=== PATIENT | female | born 1960 | race Caucasian/White ===

== ENCOUNTER 2020-03-06 14:00 | Emergency (ER) | payer OTHER, BC, SELFPAY ==
[2020-03-06 14:02] VITALS: BP 166/93; PULSE 88; RESP 20; TEMP 36.5; O2SAT 98
[2020-03-06 15:18] VITALS: RESP 18
--- NOTE | 2020-03-06 15:20 | CTR_ITS ---
PROCEDURE INFORMATION: Exam: CT Head Without Contrast Exam date and time: 03/06/2020 4:06 PM Age: 59 years old Clinical indication: Pain; Headache not specified; Patient HX: C/O intermittent L sided BELL w dizziness x 1 month; Additional info: Head pain TECHNIQUE: Imaging protocol: Computed tomography of the head without contrast. Radiation optimization: All CT scans at this facility use at least one of these dose optimization techniques: automated exposure control; mA and/or kV adjustment per patient size (includes targeted exams where dose is matched to clinical indication); or iterative reconstruction. COMPARISON: No relevant prior studies available. RADIATION DOSE METRICS: Total DLP (mGy-cm): 850.86 FINDINGS: Brain: Mild volume loss and white matter disease are identified. There is no acute infarct or edema. No hemorrhage. Ventricles: Normal. No ventriculomegaly. Bones/joints: Unremarkable. No acute fracture. Sinuses: Visualized sinuses are unremarkable. No fluid levels. Mastoid air cells: Visualized mastoid air cells are well aerated. Soft tissues: Unremarkable. CT/CT head wo con* [id number] IMPRESSION: No acute intracranial abnormality. Radiation Dose CTDIVOL = (mGy): DLP = 850.86 (mGy-cm)
--- NOTE | 2020-03-06 16:10 | ED_ITS ---
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 She has a history of COPD. She presents today with facial pain and headache. This been going on and off for several weeks. She notes that initially she thought it was related to allergies and had turned into sinusitis. She saw her primary care doctor a couple of weeks ago and was put on 7 days of Augmentin. She said she felt slightly better while she was on that but when she stopped it the pain came back. She is having a little bit of drainage. She also has a tooth that she thinks could be causing the problem. It is one that she has had a root canal and previously. Her dentist cannot see her until the end of April. 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 She denies fever. She said her doctor gave her a new inhaler for her COPD and that seems to really be helping. She has not had a cough. She does not have any known exposure to COVID. She does feel like she has had some dizziness and generally does not feel well. MD elicited complaint: headache Onset (ago): week(s) Onset description: gradually Location: left, frontal and facial Severity: severe Quality & Timing: throbbing and intermittent Exacerbating factors: none Associated symptoms: Reports malaise; Deny chest pain, fever(s), nausea, rash or vomiting Review of Systems General: Reports: 10 or more systems reviewed and unremarkable except in HPI and below Const: Reports: fatigue and malaise; Denies: fever(s) or chills Eyes: Denies: change in vision ENMT: Denies: odynophagia Card: Denies: chest pain or swelling of feet/ankles Resp: Denies: dyspnea, productive cough or non-productive cough GI: Denies: abdominal pain, nausea or vomiting : Denies: flank pain or difficulty voiding Musc: Denies: neck pain or back pain Skin/Breast: Denies: rash Neuro: Reports: headache(s) and dizziness; Denies: numbness in extremities or weakness in extremities [place]/Lymph: Denies: easy bruising or easy bleeding Physical Exam Const: COMMON NORMALS: no acute distress, patient oriented x3, no limitations and alert GENERAL APPEARANCE: cooperative and comfortable HENMT: HEAD & SCALP: normal to inspection FACE & SINUS: normal facial exam TEETH & GINGIVA IMAGES: 1. [place] visible, mild erythema of the gum. No swelling Eye: GENERAL EYE: appearance normal, both eyes and all related structures Neck/C-Spine: COMMON NORMALS: supple, no meningeal signs and no JVD Chest: COMMONS NORMALS: normal inspection of the chest Resp: COMMON NORMALS: normal respiratory effort, No use of accessory muscles and clear to auscultation bilaterally AUSCULTATION: clear to auscultation bilaterally Cardio: COMMON NORMALS: no JVD, regular rate, regular rhythm and No murmurs present (Cardio) RATE: regular rate RHYTHM: regular rhythm GI: COMMON NORMALS: Normal to inspection, nondistended, normoactive bowel sounds present, Soft to palpation and non-tender INSPECTION: Yes normal to inspection AUSCULTATION: Yes normoactive bowel sounds PALPATION: Yes Soft to palpation Back/Pelvis: COMMON NORMALS: thoracic and lumbar spine normal to inspection Extremity: COMMON NORMALS: normal to inspection Neuro: COMMON NORMALS: patient oriented x3, moves all extremities, no focal motor deficits and no sensory deficits noted SENSORIUM/ORIENTATION: Yes alert MENINGEAL SIGNS: Yes no meningeal signs Psych: COMMON NORMALS: mental status grossly normal, cooperative and normal affect Skin: COMMON NORMALS: no rashes or lesions noted and turgor normal GENERAL SKIN EXAM: no rashes or lesions noted and turgor normal Course Vital Signs: Vital signs: Vital Signs Temperature 97.7 F 03/06/20 14:02 Pulse Rate 88 03/06/20 17:50 Respiratory Rate 18 03/06/20 17:50 Blood Pressure 155/80 03/06/20 17:50 Pulse Oximetry 98 03/06/20 17:50 MDM - Headache MDM Narrative: Medical decision making narrative: Headache, mainly on the left side of her head and face. Differential includes sinusitis with failed antibiotic therapy, dental abscess, trigeminal neuralgia, temporal arteritis. CT of her head was negative and labs for temporal arteritis were negative. Clinically does not seem like trigeminal neuralgia. Plan for antibiotics for possible dental infection. Follow-up with dentist. Return if worse. Lab Data: Labs: Lab Results 03/06/20 03/06/20 03/06/20 Range/Units 16:05 16:05 16:05 WBC 9.6 (4.0-10.0) 10^3/ uL RBC 4.84 (4.1-5.3) 10^6/u L Hgb 12.5 (11.5-15.3) g/dL Hct 39.7 (37.0-47.0) % MCV 82.0 (81-99) fL MCH 25.8 L (28.0-34.0) pg MCHC 31.5 (30.0-36.0) g/dL RDW 13.8 (12.1-15.1) % Plt Count 411 H (130-400) 10^3/c mm MPV 9.2 (7.4-10.4) fL Neut % (Auto) 70.5 % Lymph % (Auto) 18.9 % [place] % (Auto) 7.9 % Eos % (Auto) 1.4 % Baso % (Auto) 0.9 % Neut # (Auto) 6.76 (1.8-7.7) 10^3/u L Lymph # (Auto) 1.8 (0.8-4.8) 10^3/u L [place] # (Auto) 0.8 (0.2-0.9) 10^3/u L Eos # (Auto) 0.1 (0.0-0.8) 10^3/u L Baso # (Auto) 0.1 (0.0-0.1) 10^3/u L Nucleated RBC % (a uto) 0 % Nucleated RBCs # 0.0 /100WBC ESR 34 H (0-15) mm/hr Sodium 138 (136-145) mmol/L Potassium 4.4 (3.5-5.1) mmol/L Chloride 101 (98-107) mmol/L Carbon Dioxide 26 (22-29) mmol/L Anion Gap 15.4 (5-19) BUN 10 (8-23) mg/dL Creatinine 0.6 (0.5-0.9) mg/dL GFR Calculation 102.0 (90-130) mL/min Glucose 96 (65-115) mg/dL Calculated Osmolal ity 282 L (285-295) mOsm/k g Calcium 9.4 (8.5-10.5) mg/dL Total Bilirubin 0.2 (0.15-1.2) mg/dL AST 22 (0-32) U/L ALT 15 (0-33) U/L Alkaline Phosphata se 62 (35-105) IU/L C-Reactive Protein 6.6 H (0.0-4.9) mg/L Total Protein 8.2 (6.6-8.7) g/dL Albumin 5.0 (3.5-5.2) g/dL Globulin 3.2 (1.3-4.6) g/dL Discharge Plan Discharge Patient Disposition: Home Clinical Impression: Dental abscess Headache Qualifiers: Headache type: unspecified Headache chronicity pattern: acute headache Intractability: not intractable Qualified Code(s): R51 - Headache Condition: Stable Prescriptions: New clindamycin HCl 150 mg capsule 300 mg PO Q6H 10 Days Qty: 80 RF: 0 Discontinued amoxicillin-pot clavulanate 500-125 mg tablet See Rx Instructions .ROUTE .COMPLEX RF: 0 No Action ibuprofen 200 mg Tablet 400 mg PO PRN RF: 0 omeprazole 20 mg capsule,delayed release(DR/EC) 20 mg PO BID RF: 0 Tylenol PM Extra Strength 25-500 mg Tablet 1 tab PO BEDTIME RF: 0 Vitamin D3 50 mcg (2,000 unit) Capsule 2,000 unit PO TID RF: 0 Correctol 5 - 6 tab PO BEDTIME RF: 0 Metamucil See Rx Instructions .ROUTE .COMPLEX RF: 0 Tylenol 2 tab PO PRN RF: 0 Discharge Orders: Discharge Order (Routine); Ordered 03/06/20 Ordered By: Hazel Baez Referrals: Cristin Israel DO [Primary Care Provider] - Discharge Diet: Usual diet Discharge Activity: Resume usual activity Patient Instructions: Dental Abscess (ED), Acute Headache (ED) Activity Restrictions/Additional Instructions: Follow up with your dentist as soon as they can get you in. Also follow up with Dr. Israel if not improving. Return to the ED if worse in any way. 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
[2020-03-06 16:26] LABS: Basophils # 0.1 10^3/uL (0.0-0.1); Basophils % 0.9 %; Eosinophils # 0.1 10^3/uL (0.0-0.8); Eosinophils % 1.4 %; Hematocrit 39.7 % (37.0-47.0); Hemoglobin 12.5 g/dL (11.5-15.3); Lymphocytes # 1.8 10^3/uL (0.8-4.8); Lymphocytes % 18.9 %; Mean Corpuscular HGB Conc 31.5 g/dL (30.0-36.0); Mean Corpuscular Hemoglobin 25.8 pg (28.0-34.0); Mean Platelet Volume 9.2 fL (7.4-10.4); Monocytes # 0.8 10^3/uL (0.2-0.9); Monocytes % 7.9 %; Neutrophils # 6.76 10^3/uL (1.8-7.7); Neutrophils % 70.5 %; Nucleated Red Blood Cells % 0 %; Platelet Count 411 10^3/cmm (130-400); Red Blood Count 4.84 10^6/uL (4.1-5.3); Red Cell Distribution Width 13.8 % (12.1-15.1); White Blood Count 9.6 10^3/uL (4.0-10.0)
[2020-03-06 17:01] LABS: Alanine Aminotransferase 15 U/L (0-33); Alkaline Phosphatase 62 IU/L (35-105); Anion Gap 15.4 (5-19); Aspartate Amino Transferase 22 U/L (0-32); Blood Urea Nitrogen 10 mg/dL (8-23); C Reactive Protein 6.6 mg/L (0.0-4.9); Calcium 9.4 mg/dL (8.5-10.5); Carbon Dioxide 26 mmol/L (22-29); Chloride 101 mmol/L (98-107); Globulin 3.2 g/dL (1.3-4.6); Glucose 96 mg/dL (65-115); Osmolality Calculated 282 mOsm/kg (285-295); Potassium 4.4 mmol/L (3.5-5.1); Sodium 138 mmol/L (136-145); Total Bilirubin 0.2 mg/dL (0.15-1.2); Total Protein 8.2 g/dL (6.6-8.7)
[2020-03-06 17:18] VITALS: BP 155/80; PULSE 88; RESP 18; O2SAT 98
[2020-03-06 17:24] LABS: Erythrocyte Sedimentation Rate 34 mm/hr (0-15)
[2020-03-06 17:50] VITALS: BP 155/80; PULSE 88; RESP 18; O2SAT 98
== END 2020-03-06 17:50 | disposition home or self-care (01) ==
PROVIDERS: Emergency Provider Emergency Medicine; PCP Family Medicine
DX: R51 Headache (principal); K04.7 Periapical abscess without sinus
CPT/HCPCS: 12345; 36415; 70450; 80053; 85025; 85651; 86140; 99281; 99283

== ENCOUNTER 2021-01-27 11:17 | Outpatient (CLI) | payer OTHER, BC, SELFPAY ==
--- NOTE | 2021-01-27 11:21 | XR_ITS ---
WS: [id number] Chest 2 views, 01/27/2021 Clinical Data: dyspnea Comparison: PA and lateral chest, 11/25/2007. Findings: No nodules, masses or effusions are seen. The heart is normal. The pulmonary vascularity is not increased. No pneumonia or pneumothorax is seen. The aortic arch and descending aorta show calci fication and tortuosity. XR/XR chest 2V* [id number] Impression: Atherosclerosis.
[2021-01-27 11:55] LABS: Basophils # 0.1 10^3/uL (0.0-0.1); Basophils % 1.1 %; Eosinophils # 0.1 10^3/uL (0.0-0.8); Eosinophils % 1.9 %; Hematocrit 35.7 % (37.0-47.0); Lymphocytes # 1.4 10^3/uL (0.8-4.8); Lymphocytes % 20.9 %; Mean Corpuscular HGB Conc 30.8 g/dL (30.0-36.0); Mean Corpuscular Hemoglobin 24.2 pg (28.0-34.0); Mean Corpuscular Volume 78.6 fL (81-99); Mean Platelet Volume 8.6 fL (7.4-10.4); Monocytes # 0.4 10^3/uL (0.2-0.9); Monocytes % 6.8 %; Neutrophils # 4.44 10^3/uL (1.8-7.7); Neutrophils % 68.8 %; Nucleated Red Blood Cells % 0 %; Platelet Count 399 10^3/cmm (130-400); Red Blood Count 4.54 10^6/uL (4.1-5.3); Red Cell Distribution Width 14.4 % (12.1-15.1); White Blood Count 6.5 10^3/uL (4.0-10.0)
[2021-01-27 12:49] LABS: NT Pro B Type Natriuretic Pept 149 pg/mL (0-125)
[2021-01-28 17:23] LABS: Alternaria Alternata (M6) Ige <0.10 kU/L; Alternaria Class 0; Bermuda Class 0; Bermuda Grass (G2) Ige <0.10 kU/L; Cat Dander (E1) Ige <0.10 kU/L; Cat Dander Class 0; Common Ragweed (Short) (W1) Ig <0.10 kU/L; D. Farinae Class 0; Dermatophagoides Class 0; Dermatophagoides Farinae (D2) <0.10 kU/L; Dermatophagoides Pteronyssinus <0.10 kU/L; Dog Dander (E5) Ige <0.10 kU/L; Dog Dander Class 0; Elm (T8) Ige <0.10 kU/L; Elm Class 0; English Plantain (W9) Ige <0.10 kU/L; English Plantain Class 0; House Dust (Greer) (H1) Ige <0.10 kU/L; House Dust (Hollister- Stier) <0.10 kU/L; House Dust Class 0; Immunoglobulin E 5 kU/L (<OR=114); Immunoglobulin E 6 kU/L (<OR=114); Johnson Grass (G10) Ige <0.10 kU/L; Johnson Grass Cl 0; June Grass Class 0; June Grass(Kentucky Blue) (G8) <0.10 kU/L; Lamb'S Quarters (Goose Foot) <0.10 kU/L; Lamb'S Quarters Class 0; Maple (Box Elder) (T1) Ige <0.10 kU/L; Maple Class 0; Meadow Fescue (G4) Ige <0.10 kU/L; Meadow Fescue Class 0; Mucor Racemosus Class 0; Oak (T7) Ige <0.10 kU/L; Oak Class 0; Orchard Grass (Cocksfoot) (G3) <0.10 kU/L; Penicillium Class 0; Penicillium Notatum (M1) Ige <0.10 kU/L; Perennial Rye Grass (G5) Ige <0.10 kU/L; Perennial Rye Grass Class 0; Ragweeed Class 0; Rough Marsh Elder (W16) Ige <0.10 kU/L; Rough Marsh Elder Class 0; Sweet Vernal Class 0; Sweet Vernal Grass (G1) Ige <0.10 kU/L; Timothy Grass (G6) Ige <0.10 kU/L; Timothy Grass Class 0
[2021-02-01 19:01] LABS: Aspergillus Fumigatus, Igg Ab, 11.3 mg/L (<=102)
== END 2021-01-27 11:18 | disposition home or self-care (01) ==
PROVIDERS: PCP Family Medicine; Visit Provider Internal Medicine Pulmonary Disease
DX: R06.00 Dyspnea, unspecified (principal); J30.89 Other allergic rhinitis; I70.90 Unspecified atherosclerosis
CPT/HCPCS: 71046; 82785; 83880; 85025; 86003

== ENCOUNTER → 2021-02-03 08:20 | Outpatient (BNVA) | payer OTHER, BC, SELFPAY | PROVIDERS: PCP Family Medicine; Visit Provider Internal Medicine Pulmonary Disease | DX: J44.9 Chronic obstructive pulmonary disease, unspecified (principal); R06.02 Shortness of breath | CPT/HCPCS: 87635 ==

== ENCOUNTER 2021-02-04 13:06 | Outpatient (CLI) | payer OTHER, BC, SELFPAY ==
--- NOTE | 2021-02-04 13:30 | USCV_ITS ---
Bernice Porter Age: 60 Gender: F : 1960 Exam Date: 02/04/2021 13:25 Ordering Phys: Desean Baker MD Technologist: Vicki Zapata [place] [facility] [place]: Dyspnea BP: 130 / 80 HR: 89 Rhythm: Sinus Technical Quality: Very technically difficult study MEASUREMENTS (Male / Female) Normal Values 2D ECHO LV Diastolic Diameter PLAX 3.6 cm 4.2 - 5.9 / 3.9 - 5.3 cm LV Systolic Diameter PLAX 2.6 cm IVS Diastolic Thickness 1.5 cm 0.6 - 1.0 / 0.6 - 0.9 cm IVS Systolic Thickness 1.5 cm LVPW Diastolic Thickness 1.2 cm 0.6 - 1.0 / 0.6 - 0.9 cm LVPW Systolic Thickness 1.5 cm LVOT Diameter 2.0 cm LV Ejection Fraction 2D Teich 56.2 % LV Ejection Fraction MOD 2C 59.5 % LV Ejection Fraction 2C AL 62.0 % LA Diameter 3.0 cm LA Width 2.6 cm LA Height 3.3 cm RA Width 2.9 cm RA Height 3.8 cm Aorta at Sinotubular Diameter 2.2 cm DOPPLER AV Peak Velocity 137.0 cm/s LVOT Peak Velocity 144.0 cm/s AV Area Cont Eq vti 2.9 cm squared AV Area Cont Eq pk 3.4 cm squared MV Area PHT 6.7 cm squared Mitral E to A Ratio 1.3 MV E' Velocity 61.5 cm/s Mitral E to MV E' Ratio 13.3 Mitral E to LV E' Lateral Ratio 12.9 Mitral E to LV E' Septal Ratio 13.8 TR Peak Velocity 235.0 cm/s TR Peak Gradient 22.1 mmHg TV Peak E Velocity 51.0 cm/s Right Atrial Pressure 3.0 mmHg Pulmonary Artery Systolic Pressu 25.1 mmHg PV Peak Velocity 93.0 cm/s RV Acceleration Time 0.1 s RV Ejection Time 0.3 s RV AcT/ET 0.5 FINDINGS Left Ventricle Normal left ventricular cavity size. Normal left ventricular systolic function. No regional wall motion abnormalities. Left ventricular ejection fraction is estimated at 56 %. Grade II/IV diastolic dysfunction, moderately elevated filling pressures. Right Ventricle The right ventricle is normal in size and function. Right Atrium The right atrium is normal in size. Left Atrium The left atrium is normal in size. Mitral Valve Structurally normal mitral valve without significant stenosis or prolapse. There is no mitral regurgitation. Aortic Valve Structurally normal aortic valve without significant sclerosis or stenosis. There is no aortic regurgitation. Tricuspid Valve Structurally normal tricuspid valve without significant stenosis or regurgitation. Pulmonary artery systolic pressure is normal. Pulmonic Valve Structurally normal pulmonic valve without significant stenosis. There is no pulmonic regurgitation. Pericardium Normal pericardium without effusion. Aorta Normal ascending aorta dimension. CONCLUSIONS 1-Normal left ventricular cavity size. Normal left ventricular systolic function. No regional wall motion abnormalities. Left ventricular ejection fraction is estimated at 56 %. Grade II/IV diastolic dysfunction, moderately elevated filling pressures. 2-There is no pericardial effusion. 3-No significant valve abnormalities. 4-Pulmonary artery systolic pressure is within normal limits. 5-Right atrial pressure is around 5 mm of mercury. 6-There are no prior echocardiogram studies to compare. Kristy Mathews MD (Electronically Signed) Final Date: 04 February 2021 19:02 S
== END 2021-02-04 13:07 | disposition home or self-care (01) ==
LOC: RAD 13:07
PROVIDERS: PCP Family Medicine; Visit Provider Internal Medicine Pulmonary Disease
DX: R06.00 Dyspnea, unspecified (principal)
CPT/HCPCS: 93306

== ENCOUNTER 2021-02-09 09:56 | Outpatient (CLI) | payer OTHER, BC, SELFPAY ==
--- NOTE | 2021-02-09 08:56 | PFTS_ITS ---
Date of Study:02/09/21 Date of Dictation: 02/11/2021 MECHANICS: Forced vital capacity (FVC) is normal.. Forced expiratory volume in one second (FEV1) is normal. FEV1/FVC is normal. Postbronchodilator study not performed FLOW VOLUME LOOP:normal . LUNG VOLUMES: Total lung capacity (TLC) is normal. Residual volume (RV) is mildly reduced 68%. DIFFUSING CAPACITY FOR CARBON MONOXIDE: normal INTERPRETATION: The nonspecific mild restriction seen on lung volumes. Spirometry and Gas transfer are normal. Clinical correlation recommended. MTDD
== END 2021-02-09 09:57 | disposition home or self-care (01) ==
LOC: RT 10:02
PROVIDERS: PCP Family Medicine; Visit Provider Internal Medicine Pulmonary Disease
DX: J44.9 Chronic obstructive pulmonary disease, unspecified (principal)
CPT/HCPCS: 94010; 94726; 94729